=== PATIENT | female | born 1940 | race Caucasian/White ===

== ENCOUNTER 2017-12-31 21:51 | Inpatient (IN) | payer OTHER, BC ==
[~2017-12-31] VITALS: Ht 154.9 cm; Wt 96.1 kg
[~2017-12-31 21:51] MED LIST: ASPIR 8181 M1 PO; COZAAR100 MG PO; HYDROCHLOROTHIA25 MG PO; IRON325 M1 PO; JANUVIA100 MG PO; LIPITOR40 MG PO; PLAVIX75 MG PO; VERAPAMIL HCL180 MG PO; VITAMIN D31000 UNI2 PO; ZOLOFT100 MG PO
[2018-01-01 09:42] VITALS: BP 157/66
[2018-01-01 16:04] VITALS: BP 144/66
[2018-01-01 20:12] VITALS: BP 137/64
[2018-01-02 00:11] VITALS: BP 158/80
[2018-01-02 04:29] VITALS: BP 168/68
[2018-01-02 06:13] LABS: HEMATOCRIT 38.5 % (36.0-46.0); HEMOGLOBIN 12.5 G/DL (11.9-15.5); MCV 87.9 FL (83-99)
[2018-01-02 06:44] LABS: CHLORIDE 100 MEQ/L (99-109); CREATININE 0.7 MG/DL (0.6-1.3); GFR ESTIMATE (CALCULATED) > 59 mL/min/; GLUCOSE 168 mg/dL (70-99); POTASSIUM 3.7 MEQ/L (3.7-5.4); SODIUM 140 MEQ/L (136-147); UREA NITROGEN (BUN) 12 mg/dL (9-23)
[2018-01-02 08:01] VITALS: BP 170/72
[2018-01-02 12:21] VITALS: BP 181/73
[2018-01-02 15:57] VITALS: BP 162/72
[2018-01-02 19:59] VITALS: BP 144/67
[2018-01-03] VITALS (8 sets, daily range): BP systolic 131–162; BP diastolic 59–66
[2018-01-03 05:50] LABS: HEMATOCRIT 38.4 % (36.0-46.0); HEMOGLOBIN 12.8 G/DL (11.9-15.5); MCV 87.7 FL (83-99)
[2018-01-03] MEDS ORDERED: TRAMADOL HCL50 MG PO (07:36)
[2018-01-03] MEDS ORDERED: HYDROCODON-ACE1 EAC7 PO (07:36)
[2018-01-04 07:36] VITALS: BP 108/52
[2018-01-04] MEDS ORDERED: HYDROCODON-ACE1 EAC9 PO (08:47)
[2018-01-04] MEDS ORDERED: ELIQUIS2.5 MG PO (08:47)
[2018-01-04 15:11] VITALS: BP 122/60
== END 2018-01-04 17:07 | DRG 470 ==
LOC: ENRESERV 21:51 → 2SOUTH 01-01 04:10 → 3WEST 01-01 09:01 → 2SOUTH 01-01 09:01 → 3WEST 01-01 15:45 → 2SOUTH 01-01 16:18 → 3WEST 01-03 06:46 → ENRESERV 01-03 09:44 → 3EAST 01-03 12:25
PROVIDERS: Orthopaedic Surgery
PROC: 0SRC0J9 Replacement of Right Knee Joint with Synthetic Substitute, Cemented, Open Approach (ICD-10-PCS; principal; 2018-01-01)
DX: M17.11 Unilateral primary osteoarthritis, right knee (principal); I10 Essential (primary) hypertension; E11.9 Type 2 diabetes mellitus without complications; K59.00 Constipation, unspecified; R41.0 Disorientation, unspecified; R26.9 Unspecified abnormalities of gait and mobility; G47.30 Sleep apnea, unspecified; Z79.84 Long term (current) use of oral hypoglycemic drugs; Z79.82 Long term (current) use of aspirin; Z79.02 Long term (current) use of antithrombotics/antiplatelets; Z85.3 Personal history of malignant neoplasm of breast; Z92.3 Personal history of irradiation
CPT/HCPCS: 71045; 74019; 80048; 82948; 85014; 85018; 94799; 97530 GP; C1713; J0690; J1100; J1170; J1815; J1885; J2250; J2405; J2710; J2795; J3010; J7030; J7050; J7643